=== PATIENT | male | born 1990 | race Caucasian/White ===

== ENCOUNTER 2020-01-08 18:25 | Emergency (ER) | payer OTHER ==
[~2020-01-08] VITALS: Ht 193 cm; Wt 98.0 kg
[2020-01-08 18:49] VITALS: BP 115/64
--- NOTE | 2020-01-08 19:07 | NUR ---
CALLED PT IN ROOM. NO ANSWER
--- NOTE | 2020-01-08 19:37 | NUR ---
CALLED PT IN WAITING ROOM. NO RESPONSE
--- NOTE | 2020-01-08 20:22 | NUR ---
CALLED PT . NO ANSWER
--- NOTE | 2020-01-08 20:38 | NUR ---
LAST CALL TO BRING THE PT IN W/ NO ANSWER.
== END 2020-01-08 20:43 | disposition left against medical advice (07) ==
LOC: ER 18:31
DX: F41.0 Panic disorder [episodic paroxysmal anxiety] (principal); F32.9 Major depressive disorder, single episode, unspecified; Z53.21 Procedure and treatment not carried out due to patient leaving prior to being seen by health care provider

== ENCOUNTER 2020-01-11 00:14 | Emergency (ER) | payer OTHER ==
[~2020-01-11] VITALS: Ht 182.9 cm; Wt 79.4 kg
[2020-01-11 01:21] VITALS: BP 122/68
== END 2020-01-11 01:33 | disposition home or self-care (01) ==
LOC: ER 00:14
DX: F32.9 Major depressive disorder, single episode, unspecified (principal); Z60.2 Problems related to living alone